=== PATIENT | male | born 1985 | race Caucasian/White ===

== ENCOUNTER 2019-04-25 14:13 | Emergency (ER) | payer OTHER ==
[2019-04-25] MEDS ORDERED: CEFTRIAXONE 1 GM/50 ML (PMX) 50 ML IVPB (14:24)
[2019-04-25] MEDS: SODIUM CHLORIDE 0.9% 1L BAG IV* (14:50)
[2019-04-25] MEDS: ACETAMINOPHEN 500 MG TAB PO (15:09)
[2019-04-25] MEDS: CEFTRIAXONE 1 GM/50 ML (PMX) 50 ML IVPB (16:06)
== END 2019-04-25 16:38 | disposition home or self-care (01) ==
LOC: E/R 14:13
DX: N20.1 Calculus of ureter (principal); R19.7 Diarrhea, unspecified
CPT/HCPCS: 74176; 80053; 81001; 83605; 84484; 85025; 85610; 85730; 87040-91; 87086; 93005; 96374; 99285-25